=== PATIENT | male | born 1950 | race Caucasian/White ===

== ENCOUNTER 2018-09-10 07:58 | Day surgery (SDC) | payer MEDICARE, OTHER ==
[2018-09-10] MEDS ORDERED: Propofol 200 MG/20 ML SDV IV ONE (07:59)
[2018-09-10] MEDS ORDERED: Midazolam 1 MG/ML 2 ML SDV IV ONE (07:59)
[2018-09-10] MEDS ORDERED: Midazolam 1 MG/ML 2 ML SDV ONE (08:45)
[2018-09-10] MEDS ORDERED: Propofol 200 MG/20 ML SDV ONE (08:45)
[2018-09-10] MEDS ORDERED: EPINEPHrine 1:10,000 1 MG/10 ML Syringe ONE (08:47)
[2018-09-10] MEDS ORDERED: Lactated Ringers 1,000 ML ONE (09:01)
[2018-09-10] MEDS ORDERED: Sodium Chloride 0.9% 10 ML Syringe FLUSH PRN (10:00)
[2018-09-10] MEDS ORDERED: Lactated Ringers 1,000 ML IV SCH (10:00)
--- NOTE | 2018-09-10 10:15 | PCM.OPNOTE ---
- General Post-Op/Procedure Note Date of Surgery/Procedure: 09/10/18 Operative Procedure(s): Colonoscopy Anesthesia Technique: MAC Primary Surgeon: Wendy Gao Condition: Good Free Text/Narrative:: INFORMED CONSENT: Patient is here today for elective colonoscopy. All aspects of this procedure have been discussed with the patient. All possible complications also, including possibility of perforation, infection, pain, bleeding and unknown complications. In the event of perforation patient may need to have abdominal exploration, colon resection, colostomy and even was discussed. Anesthetic complications were handled by anesthesia department. The patient understands fully well. Patient did not have any further questions for me at the end of my interview. The patient wishes for me to proceed. PREOPERATIVE DIAGNOSIS/INDICATIONS: [Rectal bleeding] POSTOPERATIVE DIAGNOSIS: [Small internal hemorrhoids] INSTRUMENT USED: Olympus videocolonoscope. ASA CLASSIFICATION: [2] ANESTHESIA: Continuous EKG, oximetry and intermittent blood pressure and respiratory monitoring were performed throughout the procedure. IV Versed and Fentanyl were administered. PROCEDURE PERFORMED: Colonoscopy POSITIONS OF PATIENT: Left lateral. RECTUM: Normal except for small internal hemorrhoids SIGMOID COLON: Normal. DESCENDING COLON: Normal. SPLENIC FLEXURE: Normal. TRANSVERSE COLON: Normal. HEPATIC FLEXURE: Normal. ASCENDING COLON: Normal. CECUM: Normal. ILEOCECAL VALVE: Normal. BIOPSY: None. TOLERANCE: Excellent. COMPLICATIONS: None.
--- NOTE | 2018-09-10 16:16 | OR ---
DATE OF SURGERY: 09/10/2018 SURGEON: Wendy Gao MD HISTORY: This patient is here today for elective colonoscopy. I have interviewed him and examined him. He is ASA classification 2. His heart and lungs are stable. His medical history has been reviewed for him. FINAL DIAGNOSIS: ASA classification 2, okay for colonoscopy. /[id number]/MODL
== END 2018-09-10 12:00 | disposition home or self-care (01) ==
LOC: KA.SDS 07:58
PROVIDERS: ATTEND Family Medicine
DX: K62.5 Hemorrhage of anus and rectum (principal); K64.8 Other hemorrhoids
CPT/HCPCS: 00812; J2250; J2704; J7120

== ENCOUNTER 2024-09-01 22:18 | Observation (INO) | payer MEDICARE, BC ==
[2024-09-01] MEDS ORDERED: Sodium Chloride 0.9% 10 ML Syringe FLUSH PRN (22:30)
[2024-09-01 22:41] LABS: BASOPHILS ABSOLUTE AUTO 0.05 10^3/uL (0.00-0.10); BASOPHILS PERCENT AUTO 0.5 % (0.0-1.0); EOSINOPHILS ABSOLUTE AUTO 0.05 10^3/uL (0.10-0.30); EOSINOPHILS PERCENT AUTO 0.5 % (1.0-3.0); HEMATOCRIT 45.6 % (40.0-52.0); HEMOGLOBIN 15.8 g/dL (13.0-17.0); IMMATURE GRAN ABSOLUTE AUTO 0.01 10^3/uL (0.00-0.04); IMMATURE GRAN PERCENT AUTO 0.1 % (0.0-0.4); LYMPHOCYTES ABSOLUTE AUTO 1.73 10^3/uL (1.00-4.00); MEAN CORPUSCULAR HEMOGLOBIN 30.6 pg (27.0-31.0); MEAN CORPUSCULAR HGB CONC 34.6 g/dL (32.0-36.0); MEAN CORPUSCULAR VOLUME 88.4 fL (82.0-92.0); MEAN PLATELET VOLUME 9.8 fL (7.4-10.4); MONOCYTES ABSOLUTE AUTO 0.65 10^3/uL (0.10-0.80); NEUTROPHILS ABSOLUTE AUTO 8.35 10^3/uL (2.50-7.00); NEUTROPHILS PERCENT AUTO 76.9 % (50.0-70.0); PLATELET COUNT,PLT 221 10^3/uL (150-400); RED BLOOD CELL COUNT 5.16 10^6/uL (4.50-6.00); RED CELL DISTRIBUTION WIDTH 11.7 % (11.5-14.5); WHITE BLOOD CELL COUNT,WBC 10.84 10^3/uL (5.00-10.00)
[2024-09-01] MEDS: Meclizine 25 MG Tab PO ONE (22:43)
[2024-09-01] MEDS: Ondansetron 4 MG/2 ML SDV IVPUSH ONE (22:43)
[2024-09-01] MEDS: Sodium Chloride 0.9% 1,000 ML IV SCH (22:43)
[2024-09-01 23:00] LABS: ALBUMIN 3.5 g/dL (3.40-5.00); ANION GAP 15.6 mmol/L (5-15); BILIRUBIN TOTAL 1.1 mg/dL (0.2-1.0); CALCIUM 8.9 mg/dL (8.7-10.3); CARBON DIOXIDE,CO2 24.1 mmol/L (21.0-32.0); CREATININE 0.85 mg/dL (0.51-1.17); EST CRCL DRUG DOSING (CG) 63.22 mL/min; POTASSIUM,K 3.7 mmol/L (3.5-5.1)
[2024-09-02] MEDS ORDERED: Ondansetron 4 MG/2 ML SDV IV PRN (00:54)
[2024-09-02] MEDS ORDERED: Acetaminophen 325 MG Tab PO PRN (00:54)
[2024-09-02] MEDS ORDERED: Temazepam 15 MG Cap PO PRN (00:54)
[2024-09-02] MEDS: hydrALAZINE 10 MG Tab PO PRN (01:23)
[2024-09-02 07:32] LABS: HEMATOCRIT 40.8 % (40.0-52.0); HEMOGLOBIN 13.9 g/dL (13.0-17.0); MEAN CORPUSCULAR HEMOGLOBIN 30.2 pg (27.0-31.0); MEAN CORPUSCULAR HGB CONC 34.1 g/dL (32.0-36.0); MEAN CORPUSCULAR VOLUME 88.7 fL (82.0-92.0); MEAN PLATELET VOLUME 9.8 fL (7.4-10.4); PLATELET COUNT,PLT 199 10^3/uL (150-400); RED CELL DISTRIBUTION WIDTH 11.7 % (11.5-14.5); WHITE BLOOD CELL COUNT,WBC 10.55 10^3/uL (5.00-10.00)
[2024-09-02 07:47] LABS: ANION GAP 13.6 mmol/L (5-15); CARBON DIOXIDE,CO2 24.5 mmol/L (21.0-32.0); CREATININE 0.77 mg/dL (0.51-1.17); EST CRCL DRUG DOSING (CG) 69.79 mL/min; POTASSIUM,K 4.1 mmol/L (3.5-5.1)
[2024-09-02] MEDS: Timolol Maleate 0.5% Ophth Soln 5 ML Bottle EYERT SCH (08:58)
[2024-09-02] MEDS: Meclizine 25 MG Tab PO PRN (09:01)
== END 2024-09-03 12:23 | disposition home or self-care (01) ==
LOC: KA.ED 22:18 → KA.MS 23:54
PROVIDERS: ADMIT Family Medicine; ATTEND Family Medicine
DX: R42 Dizziness and giddiness (principal); R11.2 Nausea with vomiting, unspecified; R03.0 Elevated blood-pressure reading, without diagnosis of hypertension; Z79.899 Other long term (current) drug therapy
CPT/HCPCS: 36415; 70450; 71045; 80048; 80053; 83735; 84484; 85025; 85027; 93010; 96361; 96374; 99284; 99285-25; A9270-GY; G0378; J2405; J7030; Q3014